=== PATIENT | female | born 1985 | race African-American/Black ===

== ENCOUNTER 2023-09-07 15:10 | Emergency (ER) | payer OTHER ==
[2023-09-07] MEDS ORDERED: Ketorolac Tromethamine 30 MG/ML VIAL ONE (16:04)
== END 2023-09-07 16:43 | disposition home or self-care (01) ==
LOC: ERS 15:10
DX: S16.1XXA Strain of muscle, fascia and tendon at neck level, initial encounter (principal); I10 Essential (primary) hypertension; F17.210 Nicotine dependence, cigarettes, uncomplicated; V89.2XXA Person injured in unspecified motor-vehicle accident, traffic, initial encounter; Y92.410 Unspecified street and highway as the place of occurrence of the external cause
CPT/HCPCS: 72100; 96372; J1885

== ENCOUNTER 2023-10-23 08:58 | Emergency (ER) | payer OTHER, SELFPAY ==
[2023-10-23] MEDS ORDERED: Acetaminophen 500 MG TAB ONE (09:52)
[2023-10-23] MEDS ORDERED: Amoxicillin/Potassium Clav 875 MG TAB ONE (09:52)
[2023-10-23] MEDS ORDERED: Dexamethasone 4 MG TAB ONE ×2 (09:54→10:02)
[2023-10-23] MEDS ORDERED: Ketorolac Tromethamine 30 MG (1 mL) VIAL ONE (09:54)
== END 2023-10-23 10:16 | disposition home or self-care (01) ==
LOC: ERS 08:58
DX: J36 Peritonsillar abscess (principal); I10 Essential (primary) hypertension; F17.210 Nicotine dependence, cigarettes, uncomplicated
CPT/HCPCS: 96372; 99283; J1885; J8540